=== PATIENT | male | born 1960 | race Caucasian/White ===

== ENCOUNTER 2022-03-20 10:59 | Outpatient (CLI) | payer OTHER | END 2022-03-20 11:00 | disposition home or self-care (01) | LOC: CT 10:59 | PROVIDERS: ATTEND Thoracic Surgery (Cardiothoracic Vascular Surgery) | DX: I73.9 Peripheral vascular disease, unspecified (principal); I70.1 Atherosclerosis of renal artery; I70.8 Atherosclerosis of other arteries | CPT/HCPCS: 75635 ==

== ENCOUNTER 2022-12-25 01:07 | Inpatient (IN) | payer OTHER ==
[2022-12-25] MEDS ORDERED: Dextrose 5% in Water 1,000 ML IV PRN (23:44)
[2022-12-25] MEDS ORDERED: Glucagon 1 MG/ML KIT IM PRN (23:44)
[2022-12-25] MEDS ORDERED: Acetaminophen 325 MG TAB PO PRN (23:44)
[2022-12-25] MEDS ORDERED: Ondansetron ODT 4 MG TAB PO PRN (23:44)
[2022-12-25] MEDS ORDERED: Ondansetron PF 4 MG/2 ML Vial IVP PRN (23:44)
[2022-12-25] MEDS ORDERED: Dextrose 50% Abboject 50 ML SYRINGE SLOW IVP PRN (23:44)
[2022-12-25] MEDS ORDERED: HumaLOG 300 UNITS/3 ML VIAL SC PRN (23:46)
[2022-12-25 23:53] VITALS: BMI 37.8
[2022-12-26] MEDS ORDERED: Vancomycin Dialysis Sliding Scale (Wt > 99) FS SCH (00:15)
[2022-12-26] MEDS: Cefepime 1 GM in Sodium Chloride 0.9% 100 ML IVPB SCH (05:07)
[2022-12-26 08:07] LABS: #Basophils 0.1 thou/uL (0.0-0.2); #Eosinphils 0.2 thou/uL (0.0-0.7); #Monocytes 0.7 thou/uL (0.11-0.59); #Neutrophils 6.8 thou/uL (1.40-6.50); %Basophils 0.9 % (0.0-1.0); %Eosinophils 2.7 % (0.0-10.0); %Lymphocytes 10.6 % (21.0-51.0); %Monocytes 7.7 % (0.0-10.0); %Neutrophils 77.6 % (42.0-75.0); Hematocrit 34.9 % (42.0-52.0); Hemoglobin 11.6 g/dL (14.0-18.0); Mean Corpuscular HGB CONC 33.2 g/dL (32.0-36.0); Mean Corpuscular Hemoglobin 29.7 pg (27.0-31.0); Mean Corpuscular Volume 89.3 fl (78.0-98.0); Mean Platelet Volume 9.7 fL (7.4-10.4); Platelet Count 271 10x3/uL (130-400); RBC Distribution Width 11.9 % (11.5-14.5); Red Blood Cell (RBC) Count 3.91 mill/uL (4.70-6.10); White Blood Cell (WBC) Count 8.7 10x3/uL (4.8-10.8)
[2022-12-26] MEDS: Lisinopril 20 MG TAB PO SCH (08:10)
[2022-12-26] MEDS: Heparin 5,000 UNITS/ML VIAL SC SCH ×3 (08:10→20:39)
[2022-12-26] MEDS: Famotidine 20 MG TAB PO SCH (08:10)
[2022-12-26] MEDS: Carvedilol 25 MG TAB PO SCH ×2 (08:10→20:35)
[2022-12-26] MEDS: Isosorbide Mononitrate 60 MG ER.TAB PO SCH (08:10)
[2022-12-26 08:26] LABS: Anion Gap 16 mmol/L (10-20); BUN (Urea Nitrogen) 41 mg/dL (8.4-25.7); Calc. Creatinine Clearance 22 mL/min (70-130); Calcium 9.6 mg/dL (7.8-10.44); Carbon Dioxide 28 mmol/L (23-31); Chloride 98 mmol/L (98-107); Estimated GFR 10; Glucose 114 mg/dL (80-115); Potassium 4.4 mmol/L (3.5-5.1); Sodium 138 mmol/L (136-145)
[2022-12-26] MEDS ORDERED: hydrALAZINE 20 MG/ML VIAL SLOW IVP PRN (08:37)
[2022-12-26] MEDS ORDERED: Vancomycin 1 GM in Premix Bag 1 BAG IVPB SCH (09:00)
[2022-12-26] MEDS ORDERED: Amlodipine 10 MG TAB PO SCH (12:30)
[2022-12-26] MEDS: Atorvastatin Calcium 40 MG TAB PO SCH (20:35)
[2022-12-27] MEDS: Carvedilol 25 MG TAB PO SCH ×2 (05:25→20:35)
[2022-12-27] MEDS: Cefepime 1 GM in Sodium Chloride 0.9% 100 ML IVPB SCH (05:25)
[2022-12-27 08:24] LABS: Anion Gap 19 mmol/L (10-20); BUN (Urea Nitrogen) 57 mg/dL (8.4-25.7); CRP (Inflammatory) 7.02 mg/dL (= or < 0.5); Calc. Creatinine Clearance 17 mL/min (70-130); Calcium 9.5 mg/dL (7.8-10.44); Carbon Dioxide 24 mmol/L (23-31); Chloride 98 mmol/L (98-107); Estimated GFR 7; Glucose 201 mg/dL (80-115); Potassium 4.6 mmol/L (3.5-5.1); Sodium 136 mmol/L (136-145)
[2022-12-27] MEDS: Heparin 5,000 UNITS/ML VIAL SC SCH ×3 (10:05→20:35)
[2022-12-27] MEDS: Amlodipine 10 MG TAB PO SCH ×2 (10:05→13:58)
[2022-12-27] MEDS: Famotidine 20 MG TAB PO SCH (10:05)
[2022-12-27] MEDS: Isosorbide Mononitrate 60 MG ER.TAB PO SCH ×2 (10:06→13:58)
[2022-12-27] MEDS: Lisinopril 20 MG TAB PO SCH ×2 (10:06→13:58)
[2022-12-27] MEDS ORDERED: EPINEPHrine 1 MG/ML AMP ONE (12:40)
[2022-12-27] MEDS ORDERED: Bupivacaine 0.25% HCL 30 ML VIAL ONE (12:40)
[2022-12-27] MEDS ORDERED: Lidocaine 1% (PF) 30 ML VIAL ONE (12:40)
[2022-12-27] MEDS ORDERED: Bupivacaine PF 0.5% 30 ML VIAL ONE (12:40)
[2022-12-27] MEDS ORDERED: fentaNYL 50 mcg/mL 1 mL Vial ONE (12:42)
[2022-12-27] MEDS ORDERED: Midazolam HCl 2 mg/2 ml Vial ONE (12:42)
[2022-12-27] MEDS ORDERED: Lidocaine 1% PF 5 ML VIAL ONE (12:43)
[2022-12-27] MEDS: Atorvastatin Calcium 40 MG TAB PO SCH (20:35)
[2022-12-28] MEDS: Cefepime 1 GM in Sodium Chloride 0.9% 100 ML IVPB SCH (05:14)
[2022-12-28 07:03] LABS: #Basophils 0.1 thou/uL (0.0-0.2); #Eosinphils 0.2 thou/uL (0.0-0.7); #Monocytes 0.4 thou/uL (0.11-0.59); #Neutrophils 5.4 thou/uL (1.40-6.50); %Basophils 1.2 % (0.0-1.0); %Eosinophils 2.6 % (0.0-10.0); %Lymphocytes 9.5 % (21.0-51.0); %Monocytes 6.5 % (0.0-10.0); %Neutrophils 79.2 % (42.0-75.0); Hematocrit 33.7 % (42.0-52.0); Hemoglobin 11.2 g/dL (14.0-18.0); Mean Corpuscular HGB CONC 33.2 g/dL (32.0-36.0); Mean Corpuscular Hemoglobin 29.5 pg (27.0-31.0); Mean Corpuscular Volume 88.7 fl (78.0-98.0); Platelet Count 266 10x3/uL (130-400); White Blood Cell (WBC) Count 6.8 10x3/uL (4.8-10.8)
[2022-12-28 07:23] LABS: Vancomycin, Random 13.2 ug/mL (See Comment)
[2022-12-28 07:25] LABS: Albumin 3.3 g/dL (3.4-4.8); Anion Gap 21 mmol/L (10-20); BUN (Urea Nitrogen) 70 mg/dL (8.4-25.7); BUN/Creatinine Ratio 7.23; Calc. Creatinine Clearance 14 mL/min (70-130); Calcium 9.3 mg/dL (7.8-10.44); Carbon Dioxide 24 mmol/L (23-31); Chloride 97 mmol/L (98-107); Estimated GFR 6; Glucose 201 mg/dL (80-115); Potassium 4.8 mmol/L (3.5-5.1); Sodium 137 mmol/L (136-145)
[2022-12-28 07:43] LABS: HBSAg Index 0.27 S/CO (0-0.99); Hep B Core Total Ab Non-Reactive (NonReactive); Hep B Surf Ag Non-Reactive S/CO (NonReactive); Hep C IgG Ab Non-Reactive S/CO (NonReactive); Hep C Index 0.09 S/CO (0-0.79)
[2022-12-28 07:48] LABS: HBSAB Concentration 105.24 mIU/mL; Hep B Surf AB Reactive (NonReactive)
[2022-12-28] MEDS: Sevelamer Carbonate 800 MG TAB PO SCH ×3 (08:02→17:52)
[2022-12-28] MEDS: Isosorbide Mononitrate 60 MG ER.TAB PO SCH (08:03)
[2022-12-28] MEDS: Carvedilol 25 MG TAB PO SCH ×2 (08:03→21:45)
[2022-12-28] MEDS: Famotidine 20 MG TAB PO SCH (08:03)
[2022-12-28] MEDS: Lisinopril 20 MG TAB PO SCH (08:03)
[2022-12-28] MEDS ORDERED: Heparin 10,000 UNITS/ 10 ML VIAL ONE (08:43)
[2022-12-28] MEDS ORDERED: NIFEdipine XL 60 MG ER.TAB PO SCH (09:00)
[2022-12-28] MEDS: Heparin 5,000 UNITS/ML VIAL SC SCH ×3 (09:59→22:19)
[2022-12-28] MEDS: HYDROcodone/Acetaminophen 5/325 mg Tablet PO PRN (13:59)
[2022-12-28] MEDS ORDERED: Morphine 4 MG/ML VIAL SLOW IVP PRN (14:21)
[2022-12-28] MEDS ORDERED: VANCOMYCIN 1.25 GM/250 ML BAG 1.25 GM in Premix Bag 1 BAG IVPB SCH (17:00)
[2022-12-28] MEDS: HumaLOG 300 UNITS/3 ML VIAL SC PRN (17:52)
[2022-12-28] MEDS: Atorvastatin Calcium 40 MG TAB PO SCH (21:45)
[2022-12-28] MEDS: Insulin Glargine 30 UNITS/0.3 ML VIAL SC SCH (21:46)
[2022-12-29 06:15] LABS: #Basophils 0.1 thou/uL (0.0-0.2); #Eosinphils 0.2 thou/uL (0.0-0.7); #Monocytes 0.5 thou/uL (0.11-0.59); %Basophils 0.8 % (0.0-1.0); %Eosinophils 2.6 % (0.0-10.0); %Lymphocytes 10.5 % (21.0-51.0); %Monocytes 6.8 % (0.0-10.0); %Neutrophils 78.1 % (42.0-75.0); Hematocrit 35.6 % (42.0-52.0); Hemoglobin 11.8 g/dL (14.0-18.0); Mean Corpuscular HGB CONC 33.1 g/dL (32.0-36.0); Mean Corpuscular Hemoglobin 29.5 pg (27.0-31.0); Platelet Count 305 10x3/uL (130-400); RBC Distribution Width 11.9 % (11.5-14.5); White Blood Cell (WBC) Count 7.6 10x3/uL (4.8-10.8)
[2022-12-29] MEDS: Cefepime 1 GM in Sodium Chloride 0.9% 100 ML IVPB SCH (06:18)
[2022-12-29 06:44] LABS: Anion Gap 18 mmol/L (10-20); BUN (Urea Nitrogen) 41 mg/dL (8.4-25.7); Calc. Creatinine Clearance 19 mL/min (70-130); Calcium 9.9 mg/dL (7.8-10.44); Carbon Dioxide 25 mmol/L (23-31); Chloride 96 mmol/L (98-107); Estimated GFR 8; Glucose 168 mg/dL (80-115); Potassium 4.4 mmol/L (3.5-5.1); Sodium 135 mmol/L (136-145)
[2022-12-29] MEDS: NIFEdipine XL 60 MG ER.TAB PO SCH (08:17)
[2022-12-29] MEDS: Heparin 5,000 UNITS/ML VIAL SC SCH ×3 (08:18→22:02)
[2022-12-29] MEDS: Sevelamer Carbonate 800 MG TAB PO SCH ×3 (08:18→17:19)
[2022-12-29] MEDS: Lisinopril 20 MG TAB PO SCH (08:18)
[2022-12-29] MEDS: Carvedilol 25 MG TAB PO SCH ×2 (08:18→22:02)
[2022-12-29] MEDS: Famotidine 20 MG TAB PO SCH (08:18)
[2022-12-29] MEDS: Isosorbide Mononitrate 60 MG ER.TAB PO SCH (08:18)
[2022-12-29] MEDS ORDERED: Famotidine 20 MG TAB PO SCH (09:00)
[2022-12-29] MEDS: Polyethylene Glycol 3350 17 GM Packet PO SCH (10:41)
[2022-12-29] MEDS: HumaLOG 300 UNITS/3 ML VIAL SC PRN ×2 (12:20→17:20)
[2022-12-29] MEDS: Atorvastatin Calcium 40 MG TAB PO SCH (22:02)
[2022-12-29] MEDS: Insulin Glargine 30 UNITS/0.3 ML VIAL SC SCH (22:02)
[2022-12-30] MEDS: Cefepime 1 GM in Sodium Chloride 0.9% 100 ML IVPB SCH (06:29)
[2022-12-30] MEDS: Carvedilol 25 MG TAB PO SCH ×2 (08:06→21:46)
[2022-12-30] MEDS: Heparin 5,000 UNITS/ML VIAL SC SCH ×3 (08:06→21:46)
[2022-12-30] MEDS: Sevelamer Carbonate 800 MG TAB PO SCH ×3 (08:06→17:22)
[2022-12-30 08:34] LABS: Vancomycin, Random 14.2 ug/mL (See Comment)
[2022-12-30] MEDS ORDERED: Heparin 10,000 UNITS/ 10 ML VIAL ONE (10:13)
[2022-12-30] MEDS: NIFEdipine XL 60 MG ER.TAB PO SCH (12:09)
[2022-12-30] MEDS: Lisinopril 20 MG TAB PO SCH (12:09)
[2022-12-30] MEDS: Famotidine 20 MG TAB PO SCH (12:09)
[2022-12-30] MEDS: Isosorbide Mononitrate 60 MG ER.TAB PO SCH (12:09)
[2022-12-30] MEDS: Polyethylene Glycol 3350 17 GM Packet PO SCH (12:10)
[2022-12-30] MEDS ORDERED: VANCOMYCIN 1.25 GM/250 ML BAG 1.25 GM in Premix Bag 1 BAG IVPB SCH (17:00)
[2022-12-30] MEDS: HYDROcodone/Acetaminophen 5/325 mg Tablet PO PRN (17:24)
[2022-12-30] MEDS: HumaLOG 300 UNITS/3 ML VIAL SC PRN (17:25)
[2022-12-30] MEDS: Atorvastatin Calcium 40 MG TAB PO SCH (21:46)
[2022-12-30] MEDS: Insulin Glargine 30 UNITS/0.3 ML VIAL SC SCH (21:46)
[2022-12-31 05:03] VITALS: TEMP 97.7
[2022-12-31] MEDS: Cefepime 1 GM in Sodium Chloride 0.9% 100 ML IVPB SCH (06:02)
[2022-12-31] MEDS: Lisinopril 20 MG TAB PO SCH (08:22)
[2022-12-31] MEDS: Heparin 5,000 UNITS/ML VIAL SC SCH ×3 (08:22→20:14)
[2022-12-31] MEDS: NIFEdipine XL 60 MG ER.TAB PO SCH (08:22)
[2022-12-31] MEDS: Famotidine 20 MG TAB PO SCH (08:23)
[2022-12-31] MEDS: Polyethylene Glycol 3350 17 GM Packet PO SCH (08:23)
[2022-12-31] MEDS: Isosorbide Mononitrate 60 MG ER.TAB PO SCH (08:23)
[2022-12-31] MEDS: Carvedilol 25 MG TAB PO SCH ×2 (08:23→20:14)
[2022-12-31] MEDS: Sevelamer Carbonate 800 MG TAB PO SCH ×3 (08:23→17:21)
[2022-12-31] MEDS: HumaLOG 300 UNITS/3 ML VIAL SC PRN ×2 (12:47→17:22)
[2022-12-31] MEDS: Insulin Glargine 30 UNITS/0.3 ML VIAL SC SCH (20:14)
[2022-12-31] MEDS: Atorvastatin Calcium 40 MG TAB PO SCH (20:14)
[2022-12-31 21:55] VITALS: BP 166/80
== END 2022-12-31 21:35 | disposition home or self-care (01) | DRG 617 ==
LOC: T4-A 01:07 → OBSVTOIN 12-26 11:56
PROVIDERS: ADMIT Internal Medicine; ATTEND Hospitalist
PROC: 0Y6N0Z9 Detachment at Left Foot, Partial 1st Ray, Open Approach (ICD-10-PCS; principal; 2022-12-27)
PROC: 5A09357 Assistance with Respiratory Ventilation, Less than 24 Consecutive Hours, Continuous Positive Airway Pressure (ICD-10-PCS; 2022-12-28)
PROC: 5A1D70Z Performance of Urinary Filtration, Intermittent, Less than 6 Hours Per Day (ICD-10-PCS; 2022-12-30)
DX: E11.69 Type 2 diabetes mellitus with other specified complication (principal); E87.20 Acidosis, unspecified; L97.429 Non-pressure chronic ulcer of left heel and midfoot with unspecified severity; M86.8X8 Other osteomyelitis, other site; I13.2 Hypertensive heart and chronic kidney disease with heart failure and with stage 5 chronic kidney disease, or end stage renal disease; I50.42 Chronic combined systolic (congestive) and diastolic (congestive) heart failure; E11.51 Type 2 diabetes mellitus with diabetic peripheral angiopathy without gangrene; N18.6 End stage renal disease; E11.621 Type 2 diabetes mellitus with foot ulcer; E11.22 Type 2 diabetes mellitus with diabetic chronic kidney disease; E11.628 Type 2 diabetes mellitus with other skin complications; E78.5 Hyperlipidemia, unspecified; G47.33 Obstructive sleep apnea (adult) (pediatric); E66.9 Obesity, unspecified; D63.1 Anemia in chronic kidney disease; E11.65 Type 2 diabetes mellitus with hyperglycemia; E11.40 Type 2 diabetes mellitus with diabetic neuropathy, unspecified; I16.0 Hypertensive urgency; L03.032 Cellulitis of left toe; E83.39 Other disorders of phosphorus metabolism; N25.0 Renal osteodystrophy; L97.519 Non-pressure chronic ulcer of other part of right foot with unspecified severity; Z88.8 Allergy status to other drugs, medicaments and biological substances; Z83.3 Family history of diabetes mellitus; Z98.52 Vasectomy status; Z99.2 Dependence on renal dialysis; Z79.4 Long term (current) use of insulin; Z79.899 Other long term (current) drug therapy; Z95.810 Presence of automatic (implantable) cardiac defibrillator; Z87.891 Personal history of nicotine dependence; Z68.37 Body mass index [BMI] 37.0-37.9, adult
CPT/HCPCS: 36415; 36416; 80048; 80053; 80069; 80202; 83036; 83605; 83735; 85025; 86140; 86704; 87040; 87070; 87205; 88305; 88311; 90935; 93970; 94660; 96374; 96375; 96376; 97139; G0257; G0378; J0171; J0360; J0692; J1644; J1815; J2001; J2250; J2543; J3010; J3370; J3490; S0020

== ENCOUNTER 2023-10-05 14:39 | Inpatient (IN) | payer OTHER ==
[2023-10-05 15:45] LABS: #Basophils 0.05 10x3/uL (0.0-0.2); %Basophils 0.6 % (0.0-1.0); %Lymphocytes 7.3 % (21.0-51.0); %Monocytes 6.6 % (0.0-10.0); %Neutrophils 82.9 % (42.0-75.0); Hematocrit 33.2 % (42.0-52.0); Hemoglobin 11.2 g/dL (14.0-18.0); Mean Corpuscular HGB CONC 33.7 g/dL (32.0-36.0); Mean Corpuscular Hemoglobin 30.7 pg (27.0-31.0); Mean Platelet Volume 10.4 fL (7.4-10.4); Platelet Count 269 10x3/uL (130-400); RBC Distribution Width 12.3 % (11.5-14.5); Red Blood Cell (RBC) Count 3.65 mill/uL (4.70-6.10)
[2023-10-05 16:02] LABS: ALT (SGPT) 5 U/L (8-55); AST (SGOT) 6 U/L (5-34); Albumin 2.8 g/dL (3.4-4.8); Alkaline Phosphatase 82 U/L (40-110); Anion Gap 21 mmol/L (10-20); BUN (Urea Nitrogen) 53 mg/dL (8.4-25.7); Bilirubin, Total 0.4 mg/dL (0.2-1.2); Calc. Creatinine Clearance 0 mL/min (70-130); Calcium 9.6 mg/dL (7.8-10.44); Carbon Dioxide 25 mmol/L (23-31); Chloride 93 mmol/L (98-107); Estimated GFR 8; Globulin 4.5 g/dL (2.4-3.5); Glucose 467 mg/dL (80-115); Potassium 4.5 mmol/L (3.5-5.1); Protein, Total 7.3 g/dL (5.8-8.1); Sodium 134 mmol/L (136-145)
[2023-10-05] MEDS ORDERED: Sodium Chloride 0.9% 100 ML ONE (16:42)
[2023-10-05] MEDS ORDERED: Cefepime 2 GM VIAL ONE (16:42)
[2023-10-05] MEDS ORDERED: Insulin Regular, Human 100 UNIT/ML 10 ML VIAL ONE (16:43)
[2023-10-05] MEDS ORDERED: Glucagon 1 MG/ML KIT IM PRN (17:03)
[2023-10-05] MEDS ORDERED: Dextrose 50% Abboject 50 ML SYRINGE SLOW IVP PRN (17:03)
[2023-10-05] MEDS ORDERED: Dextrose 5% in Water 1,000 ML IV PRN (17:03)
[2023-10-05] MEDS ORDERED: Vancomycin Dialysis Sliding Scale (Wt > 99) FS SCH (18:00)
[2023-10-05] MEDS: Clindamycin/D5W 900 MG in Premix 1 BAG IVPB SCH (19:09)
[2023-10-05] MEDS: Vancomycin (BATCH) 2 GM in Premix 1 BAG IVPB SCH (19:09)
[2023-10-05] MEDS: Acetaminophen 325 MG TAB PO SCH (19:09)
[2023-10-05] MEDS ORDERED: Vancomycin 1 GM in Premix 1 BAG IVPB SCH (21:00)
[2023-10-05 21:32] LABS: Lactic Acid 1.1 mmol/L (0.5-2.2)
[2023-10-05 21:35] LABS: Hemoglobin A1c 8.9 % (4.0-6.0)
[2023-10-05 21:44] VITALS: BMI 38.6
[2023-10-05] MEDS: Heparin 5,000 UNITS/ML VIAL SC SCH (21:47)
[2023-10-06] MEDS: Carvedilol 6.25 MG TAB PO SCH (09:44)
[2023-10-06] MEDS: Lisinopril 20 MG TAB PO SCH (09:44)
[2023-10-06] MEDS: Isosorbide Mononitrate 30 MG ER.TAB PO SCH (09:44)
[2023-10-06] MEDS: NIFEdipine XL 60 MG ER.TAB PO SCH (09:47)
[2023-10-06] MEDS ORDERED: Lidocaine 1% PF 5 ML VIAL ONE (11:44)
[2023-10-06] MEDS ORDERED: PROPOFOL 200 MG/20 ML VIAL ONE (11:44)
[2023-10-06] MEDS ORDERED: Heparin 10,000 UNITS/ 10 ML VIAL ONE (12:06)
[2023-10-06] MEDS: Cefepime 1 GM in Sodium Chloride 0.9% 100 ML IVPB SCH (15:38)
[2023-10-06 16:01] LABS: #Basophils 0.06 10x3/uL (0.0-0.2); %Basophils 0.9 % (0.0-1.0); %Lymphocytes 8.8 % (21.0-51.0); %Monocytes 6.5 % (0.0-10.0); %Neutrophils 80.2 % (42.0-75.0); Hematocrit 31.5 % (42.0-52.0); Hemoglobin 10.7 g/dL (14.0-18.0); Mean Corpuscular Hemoglobin 30.7 pg (27.0-31.0); Mean Corpuscular Volume 90.5 fL (78.0-98.0); Mean Platelet Volume 10.1 fL (7.4-10.4); Platelet Count 240 10x3/uL (130-400); RBC Distribution Width 12.4 % (11.5-14.5); Red Blood Cell (RBC) Count 3.48 mill/uL (4.70-6.10)
[2023-10-06 16:16] LABS: Vancomycin, Trough 23.6 ug/mL
[2023-10-06 16:18] LABS: Anion Gap 20 mmol/L (10-20); BUN (Urea Nitrogen) 66 mg/dL (8.4-25.7); Calc. Creatinine Clearance 16 mL/min (70-130); Calcium 9.3 mg/dL (7.8-10.44); Carbon Dioxide 28 mmol/L (23-31); Chloride 92 mmol/L (98-107); Estimated GFR 7; Glucose 361 mg/dL (80-115); Potassium 4.7 mmol/L (3.5-5.1); Sodium 135 mmol/L (136-145)
[2023-10-06] MEDS ORDERED: Vancomycin HCl 500 MG in Sodium Chloride 0.9% 100 ML IVPB SCH (17:00)
[2023-10-06] MEDS: Insulin Regular, Human 100 UNIT/ML 10 ML VIAL SC PRN (17:16)
[2023-10-06] MEDS ORDERED: Cefepime 0.5 GM in Sodium Chloride 0.9% 100 ML IVPB SCH (18:00)
[2023-10-06] MEDS: Vancomycin HCl 500 MG in Sodium Chloride 0.9% 100 ML IVPB SCH (23:11)
[2023-10-06] MEDS: Insulin Glargine 30 UNITS/0.3 ML VIAL SC SCH (23:13)
[2023-10-07] MEDS: Isosorbide Mononitrate 60 MG ER.TAB PO SCH (08:44)
[2023-10-07] MEDS: Lisinopril 20 MG TAB PO SCH (08:44)
[2023-10-07] MEDS: Insulin Glargine 30 UNITS/0.3 ML VIAL SC SCH (20:32)
[2023-10-08] MEDS: Acetaminophen 650 MG/20.3 ML UDCUP PO SCH (01:04)
[2023-10-08] MEDS: hydrALAZINE 25 MG TAB PO SCH (08:34)
[2023-10-08 13:16] LABS: Vancomycin, Trough 13.7 ug/mL
[2023-10-08] MEDS ORDERED: Heparin 10,000 UNITS/ 10 ML VIAL ONE (13:51)
[2023-10-08] MEDS: Vancomycin (BATCH) 1.25 GM in Premix 1 BAG IVPB SCH (17:33)
[2023-10-09 08:23] LABS: #Basophils 0.05 10x3/uL (0.0-0.2); %Basophils 0.6 % (0.0-1.0); %Eosinophils 3.2 % (0.0-10.0); %Lymphocytes 12.8 % (21.0-51.0); %Monocytes 7.7 % (0.0-10.0); %Neutrophils 74.6 % (42.0-75.0); Hemoglobin 11.6 g/dL (14.0-18.0); Mean Corpuscular HGB CONC 34.1 g/dL (32.0-36.0); Mean Corpuscular Hemoglobin 30.7 pg (27.0-31.0); Mean Corpuscular Volume 89.9 fL (78.0-98.0); Mean Platelet Volume 9.6 fL (7.4-10.4); Platelet Count 281 10x3/uL (130-400); RBC Distribution Width 12.5 % (11.5-14.5); Red Blood Cell (RBC) Count 3.78 mill/uL (4.70-6.10)
[2023-10-09 08:45] LABS: ALT (SGPT) 12 U/L (8-55); AST (SGOT) 17 U/L (5-34); Albumin 2.9 g/dL (3.4-4.8); Alkaline Phosphatase 73 U/L (40-110); Anion Gap 16 mmol/L (10-20); BUN (Urea Nitrogen) 36 mg/dL (8.4-25.7); Bilirubin, Total 0.3 mg/dL (0.2-1.2); Calc. Creatinine Clearance 23 mL/min (70-130); Calcium 9.6 mg/dL (7.8-10.44); Carbon Dioxide 25 mmol/L (23-31); Chloride 102 mmol/L (98-107); Estimated GFR 10; Globulin 4.6 g/dL (2.4-3.5); Glucose 140 mg/dL (80-115); Potassium 4.5 mmol/L (3.5-5.1); Protein, Total 7.5 g/dL (5.8-8.1); Sodium 138 mmol/L (136-145)
[2023-10-09 09:01] VITALS: BP 153/78
[2023-10-09 09:32] VITALS: TEMP 98
[2023-10-09] MEDS: Acetaminophen 325 MG TAB PO SCH (11:37)
== END 2023-10-09 15:35 | disposition home or self-care (01) | DRG 617 ==
LOC: ERS 14:39 → T4-B 17:02
PROVIDERS: ADMIT Internal Medicine; ATTEND Internal Medicine
PROC: 0Y6P0Z1 Detachment at Right 1st Toe, High, Open Approach (ICD-10-PCS; principal; 2023-10-06)
PROC: 5A09357 Assistance with Respiratory Ventilation, Less than 24 Consecutive Hours, Continuous Positive Airway Pressure (ICD-10-PCS; 2023-10-07)
DX: E11.69 Type 2 diabetes mellitus with other specified complication (principal); I13.2 Hypertensive heart and chronic kidney disease with heart failure and with stage 5 chronic kidney disease, or end stage renal disease; M86.171 Other acute osteomyelitis, right ankle and foot; I50.22 Chronic systolic (congestive) heart failure; E11.42 Type 2 diabetes mellitus with diabetic polyneuropathy; N18.6 End stage renal disease; E11.22 Type 2 diabetes mellitus with diabetic chronic kidney disease; E78.5 Hyperlipidemia, unspecified; E11.65 Type 2 diabetes mellitus with hyperglycemia; D63.1 Anemia in chronic kidney disease; E66.9 Obesity, unspecified; G47.33 Obstructive sleep apnea (adult) (pediatric); N25.0 Renal osteodystrophy; Z68.38 Body mass index [BMI] 38.0-38.9, adult; Z89.412 Acquired absence of left great toe; Z99.2 Dependence on renal dialysis; Z79.899 Other long term (current) drug therapy; Z79.4 Long term (current) use of insulin; Z95.0 Presence of cardiac pacemaker; Z83.3 Family history of diabetes mellitus; Z88.8 Allergy status to other drugs, medicaments and biological substances
CPT/HCPCS: 36415; 80048; 80053; 80202; 83036; 83605; 85025; 87040; 87070; 87077; 87186; 87205; 88305; 88311; 90935; 96374; 96375; G0257; J0692; J1644; J1815; J2704; J3370; J3490

== ENCOUNTER 2024-02-07 17:30 | Inpatient (IN) | payer OTHER ==
[2024-02-07 18:51] LABS: #Basophils 0.06 10x3/uL (0.0-0.2); %Basophils 0.9 % (0.0-1.0); %Eosinophils 1.9 % (0.0-10.0); %Lymphocytes 10.7 % (21.0-51.0); %Monocytes 8.8 % (0.0-10.0); %Neutrophils 77.3 % (42.0-75.0); Hematocrit 39.9 % (42.0-52.0); Mean Corpuscular HGB CONC 32.6 g/dL (32.0-36.0); Mean Corpuscular Hemoglobin 29.7 pg (27.0-31.0); Mean Corpuscular Volume 91.1 fL (78.0-98.0); Platelet Count 280 10x3/uL (130-400); RBC Distribution Width 13.1 % (11.5-14.5); Red Blood Cell (RBC) Count 4.38 mill/uL (4.70-6.10)
[2024-02-07 19:17] LABS: ALT (SGPT) 7 U/L (8-55); AST (SGOT) 11 U/L (5-34); Albumin 3.2 g/dL (3.4-4.8); Alkaline Phosphatase 80 U/L (40-110); Anion Gap 18 mmol/L (10-20); BUN (Urea Nitrogen) 48 mg/dL (8.4-25.7); Bilirubin, Total 0.4 mg/dL (0.2-1.2); CRP,High Sensitivity (Inhouse) 3.58 mg/dL (< or = 0.5); Calc. Creatinine Clearance 0 mL/min (70-130); Carbon Dioxide 25 mmol/L (23-31); Chloride 96 mmol/L (98-107); Estimated GFR 13; Globulin 4.5 g/dL (2.4-3.5); Glucose 183 mg/dL (80-115); Potassium 4.1 mmol/L (3.5-5.1); Protein, Total 7.7 g/dL (5.8-8.1); Sodium 135 mmol/L (136-145)
[2024-02-07] MEDS ORDERED: Cefepime 2 GM VIAL ONE (23:28)
[2024-02-07] MEDS ORDERED: Sodium Chloride 0.9% 100 ML ONE (23:29)
[2024-02-08] MEDS ORDERED: Glucagon 1 MG/ML KIT IM PRN (00:49)
[2024-02-08] MEDS ORDERED: Dextrose 50% Abboject 50 ML SYRINGE SLOW IVP PRN (00:49)
[2024-02-08] MEDS ORDERED: Acetaminophen 325 MG TAB PO PRN (00:49)
[2024-02-08] MEDS ORDERED: Insulin Lispro 100 UNIT/ML 10 ML VIAL SC PRN (00:49)
[2024-02-08] MEDS ORDERED: Dextrose 5% in Water 1,000 ML IV PRN (00:49)
[2024-02-08] MEDS ORDERED: Vancomycin Dialysis Sliding Scale (Wt > 99) FS SCH (01:30)
[2024-02-08] MEDS: Vancomycin (BATCH) 2.5 GM in Premix 1 BAG IVPB SCH (02:57)
[2024-02-08 03:02] VITALS: BMI 32.8
[2024-02-08 04:44] LABS: #Basophils 0.07 10x3/uL (0.0-0.2); %Eosinophils 2.5 % (0.0-10.0); %Lymphocytes 13.4 % (21.0-51.0); %Monocytes 9.5 % (0.0-10.0); %Neutrophils 72.9 % (42.0-75.0); Hematocrit 35.9 % (42.0-52.0); Mean Corpuscular HGB CONC 33.4 g/dL (32.0-36.0); Mean Corpuscular Hemoglobin 29.8 pg (27.0-31.0); Mean Corpuscular Volume 89.1 fL (78.0-98.0); Mean Platelet Volume 10.3 fL (7.4-10.4); Platelet Count 260 10x3/uL (130-400); RBC Distribution Width 13.1 % (11.5-14.5); Red Blood Cell (RBC) Count 4.03 mill/uL (4.70-6.10)
[2024-02-08 05:02] LABS: Anion Gap 18 mmol/L (10-20); BUN (Urea Nitrogen) 62 mg/dL (8.4-25.7); Calc. Creatinine Clearance 20 mL/min (70-130); Calcium 9.8 mg/dL (7.8-10.44); Carbon Dioxide 28 mmol/L (23-31); Chloride 95 mmol/L (98-107); Estimated GFR 10; Glucose 213 mg/dL (80-115); Sodium 137 mmol/L (136-145)
[2024-02-08] MEDS ORDERED: Piperacillin/Tazobactam 2.25 GM in Sodium Chloride 0.9% 100 ML IVPB SCH (06:00)
[2024-02-08] MEDS ORDERED: Sodium Chloride 0.9% 100 ML ONE ×2 (06:12→10:22)
[2024-02-08] MEDS ORDERED: Piperacillin/Tazobactam 3.375 GM VIAL ONE ×2 (06:12→10:22)
[2024-02-08] MEDS ORDERED: Ondansetron PF 4 MG/2 ML Vial ONE (06:19)
[2024-02-08] MEDS: Piperacillin/Tazobactam 3.375 GM in Sodium Chloride 0.9% 100 ML IVPB SCH ×2 (06:20→10:26)
[2024-02-08] MEDS: Ondansetron PF 4 MG/2 ML Vial IVP PRN (06:20)
[2024-02-08] MEDS ORDERED: Heparin 5,000 UNITS/ML VIAL ONE (08:34)
[2024-02-08] MEDS: Heparin 5,000 UNITS/ML VIAL SC SCH (08:37)
[2024-02-08] MEDS ORDERED: Vancomycin 1 GM in Premix 1 BAG IVPB SCH (09:00)
[2024-02-08] MEDS ORDERED: Carvedilol 25 MG TAB ONE (09:11)
[2024-02-08] MEDS ORDERED: Insulin Lispro 100 UNIT/ML 10 ML VIAL ONE (09:12)
[2024-02-08] MEDS: Carvedilol 6.25 MG TAB PO SCH (09:17)
[2024-02-08] MEDS: Insulin Lispro 100 UNIT/ML 10 ML VIAL SC PRN (09:18)
[2024-02-08] MEDS: NIFEdipine XL 60 MG ER.TAB PO SCH (09:49)
[2024-02-08 10:03] LABS: HBSAB Concentration 190.43 mIU/mL; HBsAg Index 0.38 S/CO (0-0.99); Hep B Core Total Ab NONREACTIVE (NonReactive); Hep B Core Total Index 0.18 S/CO (0-0.79); Hep B Surf AB REACTIVE (NonReactive); Hep B Surf Ag NONREACTIVE S/CO (NonReactive); Hep C IgG Ab NONREACTIVE S/CO (NonReactive); Hep C Index 0.12 S/CO (0-0.79)
[2024-02-08] MEDS: Lisinopril 10 MG TAB PO SCH (16:57)
[2024-02-08] MEDS: Lisinopril 20 MG TAB PO SCH (21:38)
[2024-02-09 06:25] LABS: #Basophils 0.07 10x3/uL (0.0-0.2); %Basophils 1.1 % (0.0-1.0); %Eosinophils 3.5 % (0.0-10.0); %Lymphocytes 11.7 % (21.0-51.0); %Monocytes 9.9 % (0.0-10.0); %Neutrophils 73.2 % (42.0-75.0); Hemoglobin 11.7 g/dL (14.0-18.0); Mean Corpuscular HGB CONC 32.5 g/dL (32.0-36.0); Mean Corpuscular Hemoglobin 29.7 pg (27.0-31.0); Mean Corpuscular Volume 91.4 fL (78.0-98.0); Mean Platelet Volume 10.3 fL (7.4-10.4); Platelet Count 282 10x3/uL (130-400); RBC Distribution Width 12.9 % (11.5-14.5); Red Blood Cell (RBC) Count 3.94 mill/uL (4.70-6.10)
[2024-02-09 06:35] LABS: Anion Gap 24 mmol/L (10-20); BUN (Urea Nitrogen) 87 mg/dL (8.4-25.7); Calc. Creatinine Clearance 16 mL/min (70-130); Calcium 9.9 mg/dL (7.8-10.44); Carbon Dioxide 29 mmol/L (23-31); Chloride 91 mmol/L (98-107); Estimated GFR 7; Glucose 150 mg/dL (80-115); Potassium 4.4 mmol/L (3.5-5.1); Sodium 140 mmol/L (136-145)
[2024-02-09] MEDS ORDERED: Heparin 10,000 UNITS/ 10 ML VIAL ONE (08:55)
[2024-02-09] MEDS ORDERED: Bupivacaine PF 0.5% 30 ML VIAL ONE (09:08)
[2024-02-09] MEDS ORDERED: Piperacillin/Tazobactam 3.375 GM VIAL ONE (09:24)
[2024-02-09] MEDS ORDERED: PROPOFOL 20 ML ONE (09:28)
[2024-02-09] MEDS ORDERED: ePHEDrine Sulfate 50 MG/10 ML VIAL ONE (09:31)
[2024-02-09] MEDS ORDERED: Lidocaine 2% PF 5 ML VIAL ONE (09:39)
[2024-02-09] MEDS ORDERED: fentaNYL PF 100 MCG/2 ML SYRINGE ONE (09:44)
[2024-02-09] MEDS ORDERED: Ondansetron PF 4 MG/2 ML Vial ONE (10:11)
[2024-02-09] MEDS ORDERED: Dexamethasone 4 mg/ml Vial ONE (10:11)
[2024-02-09] MEDS ORDERED: PHENYLEPHRINE-NS 100 MCG/ML 10 ML SYRINGE ONE (10:12)
[2024-02-09] MEDS: Isosorbide Mononitrate 60 MG ER.TAB PO SCH (15:07)
[2024-02-10 15:07] VITALS: BMI 32.8
[2024-02-11 05:52] LABS: #Basophils 0.07 10x3/uL (0.0-0.2); %Eosinophils 2.5 % (0.0-10.0); %Lymphocytes 16.1 % (21.0-51.0); %Monocytes 8.7 % (0.0-10.0); %Neutrophils 71.1 % (42.0-75.0); Hematocrit 34.3 % (42.0-52.0); Hemoglobin 11.4 g/dL (14.0-18.0); Mean Corpuscular HGB CONC 33.2 g/dL (32.0-36.0); Mean Corpuscular Hemoglobin 29.5 pg (27.0-31.0); Mean Corpuscular Volume 88.6 fL (78.0-98.0); Platelet Count 293 10x3/uL (130-400); RBC Distribution Width 13.1 % (11.5-14.5); Red Blood Cell (RBC) Count 3.87 mill/uL (4.70-6.10)
[2024-02-11 06:17] LABS: Anion Gap 22 mmol/L (10-20); BUN (Urea Nitrogen) 69 mg/dL (8.4-25.7); Calc. Creatinine Clearance 15 mL/min (70-130); Calcium 9.4 mg/dL (7.8-10.44); Carbon Dioxide 28 mmol/L (23-31); Chloride 94 mmol/L (98-107); Estimated GFR 7; Glucose 153 mg/dL (80-115); Magnesium 2.5 mg/dL (1.6-2.6); Potassium 4.3 mmol/L (3.5-5.1); Sodium 140 mmol/L (136-145)
[2024-02-11 07:11] LABS: Vancomycin, Trough 18.9 ug/mL
[2024-02-11] MEDS ORDERED: Heparin 10,000 UNITS/ 10 ML VIAL ONE (10:07)
[2024-02-11 17:13] VITALS: BP 165/77; TEMP 97.8
[2024-02-11] MEDS: Vancomycin 1 GM in Premix 1 BAG IVPB SCH (18:12)
== END 2024-02-11 18:32 | disposition home or self-care (01) | DRG 255 ==
LOC: ERS 17:30 → T4-B 23:05 → ERHOLD 23:24 → OBSVTOIN 02-08 00:49 → T4-B 02-08 11:58
PROVIDERS: ADMIT Student in an Organized Health Care Education/Training Program; ATTEND Internal Medicine
PROC: 0Y6R0Z1 Detachment at Right 2nd Toe, High, Open Approach (ICD-10-PCS; principal; 2024-02-09)
DX: E11.52 Type 2 diabetes mellitus with diabetic peripheral angiopathy with gangrene (principal); N18.6 End stage renal disease; I13.2 Hypertensive heart and chronic kidney disease with heart failure and with stage 5 chronic kidney disease, or end stage renal disease; I50.22 Chronic systolic (congestive) heart failure; Q61.3 Polycystic kidney, unspecified; E78.5 Hyperlipidemia, unspecified; E11.22 Type 2 diabetes mellitus with diabetic chronic kidney disease; E11.42 Type 2 diabetes mellitus with diabetic polyneuropathy; G47.33 Obstructive sleep apnea (adult) (pediatric); D63.1 Anemia in chronic kidney disease; E11.65 Type 2 diabetes mellitus with hyperglycemia; E66.9 Obesity, unspecified; E11.621 Type 2 diabetes mellitus with foot ulcer; Z99.2 Dependence on renal dialysis; Z98.52 Vasectomy status; Z89.412 Acquired absence of left great toe; Z88.8 Allergy status to other drugs, medicaments and biological substances; Z91.148 Patient's other noncompliance with medication regimen for other reason; Z95.810 Presence of automatic (implantable) cardiac defibrillator; Z68.32 Body mass index [BMI] 32.0-32.9, adult
CPT/HCPCS: 36415; 36416; 80048; 80053; 80202; 83605; 83735; 85025; 86141; 86704; 86706; 86803; 87040; 87070; 87077; 87186; 87205; 87340; 88305; 88311; 96374; 97139; G0378; J0665; J0692; J1100; J1644; J1815; J2405; J2543; J2704; J3370; J3370-JW

== ENCOUNTER 2024-02-15 15:50 | Inpatient (IN) | payer OTHER ==
[~2024-02-15 15:50] MED LIST: Iopamidol-370 76% 500 ML MDV (1 ML CHARGE) ONE
[2024-02-15 16:49] LABS: %Eosinophils 1.5 % (0.0-10.0); %Lymphocytes 11.4 % (21.0-51.0); %Monocytes 7.8 % (0.0-10.0); %Neutrophils 77.7 % (42.0-75.0); Hematocrit 36.1 % (42.0-52.0); Hemoglobin 12.2 g/dL (14.0-18.0); Mean Corpuscular HGB CONC 33.8 g/dL (32.0-36.0); Mean Corpuscular Hemoglobin 30.1 pg (27.0-31.0); Mean Corpuscular Volume 89.1 fL (78.0-98.0); Mean Platelet Volume 9.9 fL (7.4-10.4); Platelet Count 319 10x3/uL (130-400); RBC Distribution Width 13.3 % (11.5-14.5); Red Blood Cell (RBC) Count 4.05 mill/uL (4.70-6.10)
[2024-02-15 17:04] LABS: ALT (SGPT) 10 U/L (8-55); AST (SGOT) 12 U/L (5-34); Albumin 3.2 g/dL (3.4-4.8); Alkaline Phosphatase 67 U/L (40-110); Anion Gap 22 mmol/L (10-20); BUN (Urea Nitrogen) 62 mg/dL (8.4-25.7); Bilirubin, Total 0.3 mg/dL (0.2-1.2); Calc. Creatinine Clearance 0 mL/min (70-130); Calcium 9.3 mg/dL (7.8-10.44); Carbon Dioxide 24 mmol/L (23-31); Chloride 95 mmol/L (98-107); Estimated GFR 7; Globulin 3.5 g/dL (2.4-3.5); Glucose 276 mg/dL (80-115); Magnesium 2.5 mg/dL (1.6-2.6); Potassium 5.1 mmol/L (3.5-5.1); Protein, Total 6.7 g/dL (5.8-8.1); Sodium 136 mmol/L (136-145)
[2024-02-15 17:10] LABS: Troponin I 0.061 ng/mL (< 0.028)
[2024-02-15] MEDS ORDERED: Cefepime 2 GM VIAL ONE (17:11)
[2024-02-15] MEDS ORDERED: Sodium Chloride 0.9% 100 ML ONE (17:13)
[2024-02-15] MEDS ORDERED: Metoprolol Tartrate 5 MG (5 mL) VIAL ONE ×2 (17:16→17:17)
[2024-02-15] MEDS ORDERED: dilTIAZem 25 MG/5 ML VIAL ONE (17:46)
[2024-02-15] MEDS ORDERED: Ondansetron PF 4 MG/2 ML Vial IVP PRN (17:50)
[2024-02-15] MEDS ORDERED: Ondansetron ODT 4 MG TAB PO PRN (17:50)
[2024-02-15] MEDS ORDERED: Diltiazem HCl/D5W 125 ML ONE (18:00)
[2024-02-15] MEDS ORDERED: Dextrose 5% in Water 1,000 ML IV PRN (18:01)
[2024-02-15] MEDS ORDERED: Dextrose 50% Abboject 50 ML SYRINGE SLOW IVP PRN (18:01)
[2024-02-15] MEDS ORDERED: Insulin Lispro 100 UNIT/ML 10 ML VIAL SC PRN ×2 (18:01)
[2024-02-15] MEDS ORDERED: Glucagon 1 MG/ML KIT IM PRN (18:01)
[2024-02-15 18:22] LABS: INR-International Normal Ratio 1.1; PTT 29.1 sec (22.9-36.1); Prothrombin Time 13.9 sec (12.0-14.7)
[2024-02-15] MEDS ORDERED: Heparin 25,000 units/D5W 500 ML IV SCH (18:45)
[2024-02-15] MEDS ORDERED: Heparin 10,000 UNITS/ 10 ML VIAL SLOW IVP SCH (18:45)
[2024-02-15 19:26] LABS: Lactic Acid 2.98 mmol/L (0.5-2.2)
[2024-02-15 19:38] LABS: Troponin I 0.072 ng/mL (< 0.028)
[2024-02-15] MEDS ORDERED: Pharmacy to Dose : CEFEPIME IVPB PRN (19:50)
[2024-02-15 20:10] VITALS: BMI 33.6
[2024-02-15] MEDS: Heparin 10,000 UNITS/ 10 ML VIAL SLOW IVP SCH (20:40)
[2024-02-15] MEDS: Heparin 25,000 units/D5W 500 ML IV SCH (20:46)
[2024-02-15] MEDS ORDERED: Carvedilol 25 MG TAB PO SCH (21:00)
[2024-02-15] MEDS ORDERED: Heparin 5,000 UNITS/ML VIAL SC SCH (21:00)
[2024-02-15 23:27] LABS: Troponin I 0.069 ng/mL (< 0.028)
[2024-02-16 06:05] LABS: ALT (SGPT) 10 U/L (8-55); AST (SGOT) 9 U/L (5-34); Albumin 3.3 g/dL (3.4-4.8); Alkaline Phosphatase 63 U/L (40-110); Anion Gap 23 mmol/L (10-20); BUN (Urea Nitrogen) 68 mg/dL (8.4-25.7); Bilirubin, Total 0.3 mg/dL (0.2-1.2); Calc. Creatinine Clearance 14 mL/min (70-130); Calcium 9.6 mg/dL (7.8-10.44); Carbon Dioxide 22 mmol/L (23-31); Chloride 96 mmol/L (98-107); Estimated GFR 6; Globulin 4.1 g/dL (2.4-3.5); Glucose 170 mg/dL (80-115); Potassium 4.4 mmol/L (3.5-5.1); Protein, Total 7.4 g/dL (5.8-8.1); Sodium 137 mmol/L (136-145)
[2024-02-16 06:08] LABS: #Basophils 0.12 10x3/uL (0.0-0.2); %Basophils 1.3 % (0.0-1.0); %Eosinophils 2.5 % (0.0-10.0); %Lymphocytes 13.4 % (21.0-51.0); %Monocytes 7.9 % (0.0-10.0); %Neutrophils 74.4 % (42.0-75.0); Hematocrit 35.6 % (42.0-52.0); Hemoglobin 11.7 g/dL (14.0-18.0); Mean Corpuscular HGB CONC 32.9 g/dL (32.0-36.0); Mean Corpuscular Hemoglobin 30.1 pg (27.0-31.0); Mean Corpuscular Volume 91.5 fL (78.0-98.0); Mean Platelet Volume 10.1 fL (7.4-10.4); Platelet Count 318 10x3/uL (130-400); RBC Distribution Width 13.4 % (11.5-14.5); Red Blood Cell (RBC) Count 3.89 mill/uL (4.70-6.10)
[2024-02-16] MEDS ORDERED: Non-Formulary Item 1 EACH (Hydralazine Hcl [Hydralazine Hcl] 50 MG Tablet) PO SCH (09:00)
[2024-02-16] MEDS ORDERED: Lisinopril 20 MG TAB PO SCH (09:00)
[2024-02-16] MEDS: Apixaban 5 MG TAB PO SCH ×2 (14:33→20:20)
[2024-02-16] MEDS: Cholecalciferol 1,000 UNITS (25 MCG) TAB PO SCH (14:34)
[2024-02-16] MEDS: Carvedilol 6.25 MG TAB PO SCH (14:38)
[2024-02-16] MEDS: Lisinopril 20 MG TAB PO SCH (14:39)
[2024-02-16] MEDS: Ciprofloxacin 500 MG TAB PO SCH (14:40)
[2024-02-16] MEDS: Lanthanum Carbonate 500 mg Chewable Tablet PO SCH (14:42)
[2024-02-16] MEDS: Tirzepatide [Mounjaro] 10 MG/0.5 ML Pen.Injctr SC SCH (15:13)
[2024-02-16] MEDS ORDERED: Cefepime 1 GM in Sodium Chloride 0.9% 100 ML IVPB SCH (17:00)
[2024-02-16] MEDS: Acetaminophen 325 MG TAB PO PRN (17:13)
[2024-02-16] MEDS: Vancomycin (BATCH) 2.5 GM in Premix 1 BAG IVPB SCH (19:25)
[2024-02-16] MEDS: Sodium Chloride 0.9% 250 ML IV SCH (19:27)
[2024-02-16] MEDS ORDERED: Ciprofloxacin 500 MG TAB PO SCH (20:00)
[2024-02-16] MEDS: Atorvastatin Calcium 40 MG TAB PO SCH (20:20)
[2024-02-17] MEDS: Ciprofloxacin 500 MG TAB PO SCH (05:28)
[2024-02-17] MEDS: NIFEdipine XL 30 MG ER.TAB PO SCH (08:12)
[2024-02-17] MEDS: Promethazine HCl 12.5 MG in Sodium Chloride 0.9% 50 ML IVPB PRN (13:06)
[2024-02-17] MEDS: traMADol HCl 50 MG TAB PO PRN (18:13)
[2024-02-17] MEDS: Dronedarone HCl 400 MG TAB PO SCH (18:14)
[2024-02-17] MEDS: Isosorbide Mononitrate 60 MG ER.TAB PO SCH ×2 (18:15→20:22)
[2024-02-17] MEDS: Isosorbide Mononitrate 30 MG ER.TAB PO SCH (18:25)
[2024-02-17] MEDS: NIFEdipine XL 60 MG ER.TAB PO SCH (20:22)
[2024-02-18 08:41] VITALS: TEMP 97.5
[2024-02-18 09:30] LABS: #Basophils 0.09 10x3/uL (0.0-0.2); %Basophils 1.1 % (0.0-1.0); %Eosinophils 2.7 % (0.0-10.0); %Lymphocytes 9.2 % (21.0-51.0); %Monocytes 6.6 % (0.0-10.0); %Neutrophils 79.9 % (42.0-75.0); Hematocrit 34.1 % (42.0-52.0); Hemoglobin 11.4 g/dL (14.0-18.0); Mean Corpuscular HGB CONC 33.4 g/dL (32.0-36.0); Mean Corpuscular Volume 89.7 fL (78.0-98.0); Platelet Count 263 10x3/uL (130-400); RBC Distribution Width 13.2 % (11.5-14.5)
[2024-02-18] MEDS: Dronedarone HCl 400 MG TAB PO SCH (13:39)
[2024-02-18 13:48] VITALS: BP 178/80
== END 2024-02-18 15:10 | disposition home or self-care (01) | DRG 175 ==
LOC: ERS 15:50 → PCU 18:15
PROVIDERS: ADMIT Internal Medicine; ATTEND Internal Medicine
PROC: 5A1D70Z Performance of Urinary Filtration, Intermittent, Less than 6 Hours Per Day (ICD-10-PCS; principal; 2024-02-16)
DX: I26.99 Other pulmonary embolism without acute cor pulmonale (principal); N18.6 End stage renal disease; I48.4 Atypical atrial flutter; I13.2 Hypertensive heart and chronic kidney disease with heart failure and with stage 5 chronic kidney disease, or end stage renal disease; E87.20 Acidosis, unspecified; I50.32 Chronic diastolic (congestive) heart failure; I82.432 Acute embolism and thrombosis of left popliteal vein; I31.39 Other pericardial effusion (noninflammatory); D63.1 Anemia in chronic kidney disease; G47.33 Obstructive sleep apnea (adult) (pediatric); E66.9 Obesity, unspecified; E11.65 Type 2 diabetes mellitus with hyperglycemia; E11.22 Type 2 diabetes mellitus with diabetic chronic kidney disease; E11.42 Type 2 diabetes mellitus with diabetic polyneuropathy; E11.51 Type 2 diabetes mellitus with diabetic peripheral angiopathy without gangrene; Z99.2 Dependence on renal dialysis; Z88.8 Allergy status to other drugs, medicaments and biological substances; Z89.412 Acquired absence of left great toe; Z68.34 Body mass index [BMI] 34.0-34.9, adult; Z85.46 Personal history of malignant neoplasm of prostate; E78.5 Hyperlipidemia, unspecified; Z87.891 Personal history of nicotine dependence; Z79.4 Long term (current) use of insulin; Z79.899 Other long term (current) drug therapy; Z89.421 Acquired absence of other right toe(s)
CPT/HCPCS: 36415; 36416; 71045; 71275; 80053; 83605; 83735; 83880; 84145; 84443; 84484; 85025; 85610; 85730; 86850; 86900; 86901; 87040; 90935; 93005; 93010; 93306; 93970; 96365; 96367; 96375; 97139; G0257; J0692; J1644; J2550; J3370; Q9967

== ENCOUNTER 2024-04-24 16:35 | Emergency (ER) | payer OTHER ==
[2024-04-24 17:05] LABS: #Basophils 0.08 10x3/uL (0.0-0.2); %Basophils 0.9 % (0.0-1.0); %Eosinophils 1.7 % (0.0-10.0); %Lymphocytes 5.9 % (21.0-51.0); %Monocytes 7.2 % (0.0-10.0); %Neutrophils 83.4 % (42.0-75.0); Hematocrit 33.3 % (42.0-52.0); Hemoglobin 11.3 g/dL (14.0-18.0); Mean Corpuscular HGB CONC 33.9 g/dL (32.0-36.0); Mean Corpuscular Hemoglobin 29.9 pg (27.0-31.0); Mean Corpuscular Volume 88.1 fL (78.0-98.0); Mean Platelet Volume 10.4 fL (7.4-10.4); Platelet Count 268 10x3/uL (130-400); RBC Distribution Width 12.8 % (11.5-14.5); Red Blood Cell (RBC) Count 3.78 mill/uL (4.70-6.10)
[2024-04-24 17:25] LABS: Troponin I 0.091 ng/mL (< 0.028)
[2024-04-24 17:26] LABS: ALT (SGPT) 9 U/L (8-55); AST (SGOT) 12 U/L (5-34); Alkaline Phosphatase 84 U/L (40-110); Anion Gap 17 mmol/L (10-20); BUN (Urea Nitrogen) 39 mg/dL (8.4-25.7); Bilirubin, Total 0.4 mg/dL (0.2-1.2); Calc. Creatinine Clearance 0 mL/min (70-130); Calcium 9.1 mg/dL (7.8-10.44); Carbon Dioxide 32 mmol/L (23-31); Chloride 92 mmol/L (98-107); Estimated GFR 13; Glucose 224 mg/dL (80-115); Lipase 32 U/L (8-78); Magnesium 2.3 mg/dL (1.6-2.6); Potassium 4.4 mmol/L (3.5-5.1); Sodium 137 mmol/L (136-145)
[2024-04-24] MEDS ORDERED: Metoprolol Tartrate 5 MG (5 mL) VIAL ONE (17:46)
[2024-04-24 18:33] LABS: Phosphorus 4.6 mg/dL (2.3-4.7)
[2024-04-24 19:23] LABS: Bacteria/HPF None Seen HPF (None Seen); Bilirubin Negative (Negative); Blood, Urine 2+ (Negative); CAUTI Indications for Culture Fever or rigors; Clarity Clear (Clear); Glucose, Urine (Dipstick) 200 mg/dL (Negative); Ketone, Urine Negative (Negative); Leukocyte Negative Leu/uL (Negative); Nitrite Negative (Negative); Protein, Urine (Dipstick) 200 mg/dL (Neg-Trace); RBC/HPF 21-50 HPF (0-3); Specific Gravity, Urine 1.009 (1.002-1.036); Squamous Epithelial None Seen HPF (0-3); Urobilinogen Normal mg/dL (Less than 2); pH, Urine 7.5 (5.0-9.0)
[2024-04-24 19:28] LABS: Urine Culture Reflex No No
== END 2024-04-24 19:37 | disposition home or self-care (01) ==
LOC: ERS 16:35
DX: R53.1 Weakness (principal); I13.2 Hypertensive heart and chronic kidney disease with heart failure and with stage 5 chronic kidney disease, or end stage renal disease; E11.22 Type 2 diabetes mellitus with diabetic chronic kidney disease; I50.9 Heart failure, unspecified; N18.6 End stage renal disease; Z99.2 Dependence on renal dialysis
CPT/HCPCS: 71045; 80053; 81001; 83690; 83735; 84100; 84443; 84484; 85025; 87428; 93005; 94760; 96374

== ENCOUNTER 2024-05-01 18:37 | Inpatient (IN) | payer OTHER ==
[2024-05-01 21:18] VITALS: BMI 32.8
[2024-05-01] MEDS ORDERED: Calcium Carbonate 500 MG ChewTAB PO PRN (22:29)
[2024-05-01] MEDS ORDERED: Dextrose 50% Abboject 50 ML SYRINGE SLOW IVP PRN (22:29)
[2024-05-01] MEDS ORDERED: Acetaminophen 650 MG Suppository PR PRN (22:29)
[2024-05-01] MEDS ORDERED: Ondansetron PF 4 MG/2 ML Vial IVP PRN (22:29)
[2024-05-01] MEDS ORDERED: Ondansetron ODT 4 MG TAB PO PRN (22:29)
[2024-05-01] MEDS ORDERED: Dextrose 5% in Water 1,000 ML IV PRN (22:29)
[2024-05-01] MEDS ORDERED: Glucagon 1 MG/ML KIT IM PRN (22:29)
[2024-05-01] MEDS ORDERED: Acetaminophen 325 MG TAB PO PRN (22:29)
[2024-05-02 05:03] LABS: ALT (SGPT) 6 U/L (8-55); AST (SGOT) 10 U/L (5-34); Albumin 2.8 g/dL (3.4-4.8); Alkaline Phosphatase 74 U/L (40-110); Anion Gap 20 mmol/L (10-20); BUN (Urea Nitrogen) 75 mg/dL (8.4-25.7); Bilirubin, Total 0.4 mg/dL (0.2-1.2); Calc. Creatinine Clearance 13 mL/min (70-130); Calcium 8.9 mg/dL (7.8-10.44); Carbon Dioxide 31 mmol/L (23-31); Chloride 94 mmol/L (98-107); Estimated GFR 6; Globulin 3.8 g/dL (2.4-3.5); Glucose 192 mg/dL (80-115); Potassium 4.7 mmol/L (3.5-5.1); Protein, Total 6.6 g/dL (5.8-8.1); Sodium 140 mmol/L (136-145)
[2024-05-02] MEDS: NIFEdipine XL 60 MG ER.TAB PO SCH (08:54)
[2024-05-02] MEDS: Famotidine 20 MG TAB PO SCH (08:54)
[2024-05-02] MEDS: Dronedarone HCl 400 MG TAB PO SCH (08:54)
[2024-05-02] MEDS: Carvedilol 6.25 MG TAB PO SCH (08:54)
[2024-05-02] MEDS: Cholecalciferol 1,000 UNITS (25 MCG) TAB PO SCH (08:54)
[2024-05-02] MEDS: Isosorbide Mononitrate 60 MG ER.TAB PO SCH (08:54)
[2024-05-02] MEDS: Apixaban 5 MG TAB PO SCH (08:55)
[2024-05-02] MEDS: Insulin Glargine 30 UNITS/0.3 ML VIAL SC SCH (08:56)
[2024-05-02] MEDS: Famotidine/PF 20 mg/2ml Vial SLOW IVP SCH (09:00)
[2024-05-02] MEDS ORDERED: Dextrose 5% in Water 1,000 ML IV PRN (11:10)
[2024-05-02] MEDS ORDERED: Dextrose 50% Abboject 50 ML SYRINGE SLOW IVP PRN (11:10)
[2024-05-02] MEDS ORDERED: Glucagon 1 MG/ML KIT IM PRN (11:10)
[2024-05-02] MEDS ORDERED: Insulin Lispro 100 UNIT/ML 10 ML VIAL SC PRN (11:10)
[2024-05-02] MEDS: Insulin Lispro 100 UNIT/ML 10 ML VIAL SC PRN (11:20)
[2024-05-02] MEDS: Atorvastatin Calcium 40 MG TAB PO SCH (20:29)
[2024-05-03] MEDS: Carvedilol 25 MG TAB PO SCH ×2 (11:35→20:50)
[2024-05-04] MEDS: Lisinopril 20 MG TAB PO SCH (09:22)
[2024-05-04 12:19] VITALS: BP 189/90; TEMP 98.3
== END 2024-05-04 14:03 | disposition home or self-care (01) | DRG 308 ==
LOC: 2NO 18:37 → INTOOBSV 18:37 → OBSVTOIN 05-02 17:57
PROVIDERS: ADMIT Student in an Organized Health Care Education/Training Program; ATTEND Hospitalist
PROC: 5A09357 Assistance with Respiratory Ventilation, Less than 24 Consecutive Hours, Continuous Positive Airway Pressure (ICD-10-PCS; principal; 2024-05-02)
PROC: 5A1D70Z Performance of Urinary Filtration, Intermittent, Less than 6 Hours Per Day (ICD-10-PCS; 2024-05-02)
DX: I48.0 Paroxysmal atrial fibrillation (principal); N18.6 End stage renal disease; I13.2 Hypertensive heart and chronic kidney disease with heart failure and with stage 5 chronic kidney disease, or end stage renal disease; I50.22 Chronic systolic (congestive) heart failure; D63.1 Anemia in chronic kidney disease; E66.9 Obesity, unspecified; G47.33 Obstructive sleep apnea (adult) (pediatric); I48.92 Unspecified atrial flutter; E11.22 Type 2 diabetes mellitus with diabetic chronic kidney disease; Z68.32 Body mass index [BMI] 32.0-32.9, adult; Z88.8 Allergy status to other drugs, medicaments and biological substances; Z99.2 Dependence on renal dialysis; Z89.429 Acquired absence of other toe(s), unspecified side; I48.20 Chronic atrial fibrillation, unspecified; R09.02 Hypoxemia; E11.9 Type 2 diabetes mellitus without complications; Z95.0 Presence of cardiac pacemaker; Z55.0 Illiteracy and low-level literacy
CPT/HCPCS: 36415; 36416; 36600; 71045; 80053; 82805; 83605; 83690; 83880; 84443; 84484; 85025; 85610; 85730; 87040; 92960; 93005; 93010; 96374; 96375; 99152; G0378; J1160; J1815; J1940; J2250; J3010; J3490

== ENCOUNTER 2024-05-12 17:07 | Emergency (ER) | payer OTHER ==
[2024-05-12] MEDS ORDERED: Metoprolol Tartrate 5 MG (5 mL) VIAL ONE (17:44)
[2024-05-12 17:56] LABS: #Basophils 0.07 10x3/uL (0.0-0.2); %Basophils 0.9 % (0.0-1.0); %Eosinophils 2.1 % (0.0-10.0); %Lymphocytes 10.7 % (21.0-51.0); %Monocytes 8.5 % (0.0-10.0); %Neutrophils 77.5 % (42.0-75.0); Hematocrit 33.7 % (42.0-52.0); Hemoglobin 11.1 g/dL (14.0-18.0); Mean Corpuscular HGB CONC 32.9 g/dL (32.0-36.0); Mean Corpuscular Hemoglobin 29.8 pg (27.0-31.0); Mean Corpuscular Volume 90.6 fL (78.0-98.0); Mean Platelet Volume 9.9 fL (7.4-10.4); Platelet Count 277 10x3/uL (130-400); RBC Distribution Width 13.2 % (11.5-14.5); Red Blood Cell (RBC) Count 3.72 mill/uL (4.70-6.10)
[2024-05-12 18:18] LABS: Troponin I 0.088 ng/mL (< 0.028)
[2024-05-12 18:23] LABS: ALT (SGPT) Less than 7 U/L (Less than 45); AST (SGOT) 15 U/L (11-34); Alkaline Phosphatase 75 U/L (40-110); Anion Gap 14 mmol/L (10-20); BUN (Urea Nitrogen) 24 mg/dL (8.4-25.7); Bilirubin, Total 0.4 mg/dL (0.3-1.2); Calc. Creatinine Clearance 0 mL/min (70-130); Calcium 9.5 mg/dL (7.8-10.44); Carbon Dioxide 35 mmol/L (23-31); Chloride 95 mmol/L (98-107); Estimated GFR 14; Globulin 3.6 g/dL (2.4-3.5); Glucose 173 mg/dL (80-115); Magnesium 2.2 mg/dL (1.6-2.6); Potassium 3.8 mmol/L (3.5-5.1); Protein, Total 6.6 g/dL (5.8-8.1); Sodium 140 mmol/L (136-145)
[2024-05-12] MEDS ORDERED: Sodium Chloride 0.9% 100 ML ONE (19:20)
[2024-05-12] MEDS ORDERED: Cefepime 2 GM VIAL ONE (19:20)
== END 2024-05-12 19:56 | disposition home or self-care (01) ==
LOC: ERS 17:07
DX: R00.0 Tachycardia, unspecified (principal); I12.0 Hypertensive chronic kidney disease with stage 5 chronic kidney disease or end stage renal disease; E11.22 Type 2 diabetes mellitus with diabetic chronic kidney disease; N18.6 End stage renal disease; Z99.2 Dependence on renal dialysis
CPT/HCPCS: 36415; 71045; 80053; 83735; 83880; 84484; 85025; 93005; 94760; 96361; 96374; J0692

== ENCOUNTER 2024-11-07 08:40 | Day surgery (SDC) | payer OTHER ==
[2024-11-02 11:35] VITALS: BMI 34.7
[2024-11-02 12:57] LABS: #Basophils 0.08 10x3/uL (0.0-0.2); #Eosinophils 0.13 10x3/uL (0.0-0.7); #Monocytes 0.54 10x3/uL (0.11-0.59); #Neutrophils 5.18 10x3/uL (1.40-6.50); %Basophils 1.2 % (0.0-1.0); %Eosinophils 2.0 % (0.0-10.0); %Lymphocytes 9.1 % (21.0-51.0); %Monocytes 8.2 % (0.0-10.0); %Neutrophils 79.0 % (42.0-75.0); Hematocrit 36.8 % (42.0-52.0); Hemoglobin 11.4 g/dL (14.0-18.0); Mean Corpuscular Hemoglobin 28.1 pg (27.0-31.0); Mean Corpuscular Volume 90.9 fL (78.0-98.0); Platelet Count 252 10x3/uL (130-400); Red Blood Cell (RBC) Count 4.05 mill/uL (4.70-6.10); White Blood Cell (WBC) Count 6.56 10x3/uL (4.8-10.8)
[2024-11-02 13:12] LABS: INR-International Normal Ratio 1.2; PTT 31.2 sec (22.9-36.1); Prothrombin Time 15.4 sec (12.0-14.7)
[2024-11-02 13:35] LABS: ALT (SGPT) 26 U/L (Less than 45); AST (SGOT) 25 U/L (11-34); Albumin 3.2 g/dL (3.1-4.5); Alkaline Phosphatase 102 U/L (40-110); Anion Gap 16 mmol/L (10-20); BUN (Urea Nitrogen) 50 mg/dL (8.4-25.7); Bilirubin, Total 0.3 mg/dL (0.3-1.2); Calc. Creatinine Clearance 0 mL/min (70-130); Calcium 9.5 mg/dL (7.8-10.44); Carbon Dioxide 30 mmol/L (23-31); Chloride 93 mmol/L (98-107); Globulin 3.4 g/dL (2.4-3.5); Glucose 237 mg/dL (80-115); Potassium 5.2 mmol/L (3.5-5.1); Sodium 134 mmol/L (136-145)
[2024-11-03 05:13] LABS: Myoglobin, Serum 145.0 ng/mL (28-72)
[2024-11-06 13:37] LABS: Hemoglobin,Free - Plasma 2.8 mg/dL (0.0-4.9)
[2024-11-07] MEDS ORDERED: SUGAMMADEX SODIUM 200 MG/2 ML VIAL ONE (12:39)
[2024-11-07] MEDS ORDERED: Rocuronium Bromide 10 MG/ML (10ML VIAL) ONE (12:39)
[2024-11-07] MEDS ORDERED: PROPOFOL 20 ML ONE (12:39)
[2024-11-07] MEDS ORDERED: Ondansetron PF 4 MG/2 ML Vial ONE (12:39)
[2024-11-07] MEDS ORDERED: Sevoflurane 250 ML INH ANEST BOTTLE ONE (12:40)
[2024-11-07] MEDS ORDERED: Heparin 10,000 UNITS/ 10 ML VIAL ONE (12:44)
[2024-11-07] MEDS ORDERED: Isoproterenol 0.2 MG/1 ML AMP ONE (12:51)
[2024-11-07] MEDS ORDERED: PHENYLEPHRINE-NS 100 MCG/ML 10 ML SYRINGE ONE (13:33)
== END 2024-11-07 17:54 | disposition home or self-care (01) ==
LOC: SDC 08:40
PROVIDERS: ATTEND Internal Medicine Cardiovascular Disease
DX: I48.3 Typical atrial flutter (principal); I50.9 Heart failure, unspecified; N18.6 End stage renal disease; Z86.718 Personal history of other venous thrombosis and embolism; Z86.711 Personal history of pulmonary embolism; Z98.41 Cataract extraction status, right eye; Z98.42 Cataract extraction status, left eye; Z88.8 Allergy status to other drugs, medicaments and biological substances
CPT/HCPCS: 80053; 83010; 83051; 83874; 85025; 85610; 85730; 86850; 86900; 86901; 93005; 93623; 93653; C1730; C1732; C1759; C1760; C1769; C1894; J1100; J1265; J1644; J2405; J2704; J2720; J3010

== ENCOUNTER 2024-11-16 08:50 | Inpatient (IN) | payer OTHER ==
[2024-11-16] MEDS ORDERED: Heparin 10,000 UNITS/ 10 ML VIAL ONE (10:04)
[2024-11-16] MEDS ORDERED: Dextrose 50% Abboject 50 ML SYRINGE SLOW IVP PRN (13:03)
[2024-11-16] MEDS ORDERED: Acetaminophen 325 MG TAB PO PRN (13:03)
[2024-11-16] MEDS ORDERED: Glucagon 1 MG/ML KIT IM PRN (13:03)
[2024-11-16] MEDS ORDERED: Ondansetron PF 4 MG/2 ML Vial IVP PRN (13:03)
[2024-11-16] MEDS: Apixaban 5 MG TAB PO SCH (20:35)
[2024-11-17 03:55] LABS: #Basophils 0.06 10x3/uL (0.0-0.2); #Eosinophils 0.13 10x3/uL (0.0-0.7); #Monocytes 0.54 10x3/uL (0.11-0.59); #Neutrophils 4.41 10x3/uL (1.40-6.50); %Basophils 1.1 % (0.0-1.0); %Eosinophils 2.4 % (0.0-10.0); %Lymphocytes 6.5 % (21.0-51.0); %Monocytes 9.8 % (0.0-10.0); %Neutrophils 79.7 % (42.0-75.0); Hematocrit 39.4 % (42.0-52.0); Hemoglobin 12.2 g/dL (14.0-18.0); Mean Corpuscular Hemoglobin 28.6 pg (27.0-31.0); Mean Corpuscular Volume 92.5 fL (78.0-98.0); Platelet Count 179 10x3/uL (130-400); Red Blood Cell (RBC) Count 4.26 mill/uL (4.70-6.10); White Blood Cell (WBC) Count 5.53 10x3/uL (4.8-10.8)
[2024-11-17 04:27] LABS: Anion Gap 16 mmol/L (10-20); BUN (Urea Nitrogen) 29 mg/dL (8.4-25.7); Calc. Creatinine Clearance 26 mL/min (70-130); Calcium 8.6 mg/dL (7.8-10.44); Carbon Dioxide 25 mmol/L (23-31); Chloride 97 mmol/L (98-107); Glucose 124 mg/dL (80-115); Potassium 5.0 mmol/L (3.5-5.1); Sodium 133 mmol/L (136-145)
[2024-11-17] MEDS: Amiodarone 200 MG TAB PO SCH (20:45)
[2024-11-18 03:52] LABS: Anion Gap 17 mmol/L (10-20); BUN (Urea Nitrogen) 30 mg/dL (8.4-25.7); Calc. Creatinine Clearance 23 mL/min (70-130); Calcium 8.4 mg/dL (7.8-10.44); Carbon Dioxide 23 mmol/L (23-31); Chloride 96 mmol/L (98-107); Glucose 138 mg/dL (80-115); Potassium 5.5 mmol/L (3.5-5.1); Sodium 130 mmol/L (136-145)
[2024-11-18 05:27] VITALS: BMI 4507.0
[2024-11-18 06:02] LABS: #Basophils 0.05 10x3/uL (0.0-0.2); #Eosinophils 0.13 10x3/uL (0.0-0.7); #Monocytes 0.50 10x3/uL (0.11-0.59); #Neutrophils 4.47 10x3/uL (1.40-6.50); %Basophils 0.9 % (0.0-1.0); %Eosinophils 2.3 % (0.0-10.0); %Lymphocytes 7.1 % (21.0-51.0); %Monocytes 8.9 % (0.0-10.0); %Neutrophils 79.9 % (42.0-75.0); Hematocrit 41.7 % (42.0-52.0); Hemoglobin 13.0 g/dL (14.0-18.0); Mean Corpuscular Hemoglobin 28.7 pg (27.0-31.0); Mean Corpuscular Volume 92.1 fL (78.0-98.0); Platelet Count 148 10x3/uL (130-400); Red Blood Cell (RBC) Count 4.53 mill/uL (4.70-6.10); White Blood Cell (WBC) Count 5.60 10x3/uL (4.8-10.8)
[2024-11-18] MEDS: LOKELMA 10 GM PACKET PO SCH (09:31)
[2024-11-18 16:37] VITALS: BP 141/82; TEMP 97.9
== END 2024-11-18 17:37 | disposition home or self-care (01) | DRG 640 ==
LOC: PCU 10:53
PROVIDERS: ADMIT Family Medicine; ATTEND Hospitalist
PROC: 5A09357 Assistance with Respiratory Ventilation, Less than 24 Consecutive Hours, Continuous Positive Airway Pressure (ICD-10-PCS; principal; 2024-11-16)
DX: E87.5 Hyperkalemia (principal); N18.6 End stage renal disease; I5A Non-ischemic myocardial injury (non-traumatic); I50.32 Chronic diastolic (congestive) heart failure; N25.81 Secondary hyperparathyroidism of renal origin; I48.92 Unspecified atrial flutter; I48.91 Unspecified atrial fibrillation; E11.40 Type 2 diabetes mellitus with diabetic neuropathy, unspecified; D63.1 Anemia in chronic kidney disease; G47.33 Obstructive sleep apnea (adult) (pediatric); E78.5 Hyperlipidemia, unspecified; Z99.2 Dependence on renal dialysis; Z79.4 Long term (current) use of insulin; Z79.899 Other long term (current) drug therapy; Z95.810 Presence of automatic (implantable) cardiac defibrillator
CPT/HCPCS: 36415; 36416; 71045; 80048; 80053; 83735; 83880; 84443; 84484; 85025; 93005; 93010; 93306; 94660; 96374; J0282; J0283; J0612; J1644; J1815; J7070; J7999; Q0162

== ENCOUNTER 2024-12-08 21:44 | Emergency (ER) | payer OTHER, MEDICARE ==
[2024-12-08 22:41] LABS: #Basophils 0.10 10x3/uL (0.0-0.2); #Eosinophils 0.18 10x3/uL (0.0-0.7); #Monocytes 0.49 10x3/uL (0.11-0.59); #Neutrophils 5.95 10x3/uL (1.40-6.50); %Basophils 1.4 % (0.0-1.0); %Eosinophils 2.5 % (0.0-10.0); %Lymphocytes 6.0 % (21.0-51.0); %Monocytes 6.8 % (0.0-10.0); %Neutrophils 82.9 % (42.0-75.0); Hematocrit 38.3 % (42.0-52.0); Hemoglobin 12.0 g/dL (14.0-18.0); Mean Corpuscular Hemoglobin 27.6 pg (27.0-31.0); Mean Corpuscular Volume 88.0 fL (78.0-98.0); Platelet Count 181 10x3/uL (130-400); Red Blood Cell (RBC) Count 4.35 mill/uL (4.70-6.10); White Blood Cell (WBC) Count 7.18 10x3/uL (4.8-10.8)
[2024-12-08 22:55] LABS: ALT (SGPT) 10 U/L (Less than 45); AST (SGOT) 12 U/L (11-34); Albumin 3.3 g/dL (3.1-4.5); Alkaline Phosphatase 116 U/L (40-110); Anion Gap 13 mmol/L (10-20); BUN (Urea Nitrogen) 28 mg/dL (8.4-25.7); Bilirubin, Total 0.6 mg/dL (0.3-1.2); Calc. Creatinine Clearance 0 mL/min (70-130); Calcium 9.5 mg/dL (7.8-10.44); Carbon Dioxide 30 mmol/L (23-31); Chloride 96 mmol/L (98-107); Globulin 3.6 g/dL (2.4-3.5); Glucose 205 mg/dL (80-115); Potassium 4.3 mmol/L (3.5-5.1); Sodium 135 mmol/L (136-145)
[2024-12-09] MEDS ORDERED: Clindamycin/D5W 600 MG in Premix 1 BAG IVPB SCH (04:15)
== END 2024-12-09 05:40 | disposition home or self-care (01) ==
LOC: ERS 21:44
DX: L03.90 Cellulitis, unspecified (principal); I13.2 Hypertensive heart and chronic kidney disease with heart failure and with stage 5 chronic kidney disease, or end stage renal disease; E11.22 Type 2 diabetes mellitus with diabetic chronic kidney disease; N18.6 End stage renal disease; I50.9 Heart failure, unspecified; Z99.2 Dependence on renal dialysis; Z89.421 Acquired absence of other right toe(s); Z89.412 Acquired absence of left great toe
CPT/HCPCS: 36415; 80053; 83605; 85025; 87040; 96365; J3490

== ENCOUNTER 2025-03-23 12:12 | Emergency (ER) | payer MEDICARE, OTHER ==
[2025-03-23] MEDS ORDERED: Tranexamic Acid 1,000 MG/10 ML VIAL ONE ×3 (13:47→14:34)
[2025-03-23 14:01] LABS: #Basophils 0.12 10x3/uL (0.0-0.2); #Eosinophils 0.33 10x3/uL (0.0-0.7); #Monocytes 0.71 10x3/uL (0.11-0.59); #Neutrophils 9.03 10x3/uL (1.40-6.50); %Basophils 1.1 % (0.0-1.0); %Eosinophils 2.9 % (0.0-10.0); %Lymphocytes 8.3 % (21.0-51.0); %Monocytes 6.3 % (0.0-10.0); %Neutrophils 80.8 % (42.0-75.0); Hematocrit 35.5 % (42.0-52.0); Hemoglobin 11.9 g/dL (14.0-18.0); Mean Corpuscular Hemoglobin 29.6 pg (27.0-31.0); Mean Corpuscular Volume 88.3 fL (78.0-98.0); Platelet Count 267 10x3/uL (130-400); Red Blood Cell (RBC) Count 4.02 mill/uL (4.70-6.10); White Blood Cell (WBC) Count 11.19 10x3/uL (4.8-10.8)
[2025-03-23] MEDS ORDERED: Oxymetazoline HCl 0.05% (30 ML BOT) ONE (14:12)
[2025-03-23 14:17] LABS: INR-International Normal Ratio 1.2; PTT 31.0 sec (22.9-36.1); Prothrombin Time 15.6 sec (12.0-14.7)
[2025-03-23] MEDS ORDERED: Ondansetron PF 4 MG/2 ML Vial ONE (14:30)
[2025-03-23 14:38] LABS: ALT (SGPT) Less than 7 U/L (Less than 45); AST (SGOT) 16 U/L (11-34); Albumin 3.3 g/dL (3.1-4.5); Alkaline Phosphatase 104 U/L (40-110); Anion Gap 20 mmol/L (10-20); BUN (Urea Nitrogen) 94 mg/dL (8.4-25.7); Bilirubin, Total 0.4 mg/dL (0.3-1.2); Calc. Creatinine Clearance 0 mL/min (70-130); Calcium 9.8 mg/dL (7.8-10.44); Carbon Dioxide 31 mmol/L (23-31); Chloride 91 mmol/L (98-107); Globulin 3.6 g/dL (2.4-3.5); Glucose 257 mg/dL (80-115); Lipase 55 U/L (8-78); Potassium 5.1 mmol/L (3.5-5.1); Sodium 137 mmol/L (136-145)
[2025-03-23] MEDS ORDERED: Carvedilol 25 MG TAB ONE (17:20)
== END 2025-03-23 20:43 | disposition short-term general hospital (02) ==
LOC: ERS 12:12
DX: R04.0 Epistaxis (principal); E11.22 Type 2 diabetes mellitus with diabetic chronic kidney disease; I13.0 Hypertensive heart and chronic kidney disease with heart failure and stage 1 through stage 4 chronic kidney disease, or unspecified chronic kidney disease; N18.9 Chronic kidney disease, unspecified; I50.9 Heart failure, unspecified; R79.89 Other specified abnormal findings of blood chemistry; Z87.891 Personal history of nicotine dependence; Z79.01 Long term (current) use of anticoagulants; Z79.899 Other long term (current) drug therapy
CPT/HCPCS: 30901; 70450; 80053; 83690; 84484; 85025; 85610; 85730; 93005; 96374; 96375; 99285; J2405